=== PATIENT | female | born 1975 | race Caucasian/White ===

== ENCOUNTER 2020-09-26 16:54 | Inpatient (IN) | payer OTHER ==
[2020-09-26] MEDS ORDERED: ASPIRIN 81 MG PO STA (17:26)
[2020-09-26] MEDS ORDERED: SODIUM CHLORIDE 0.9% 1,000 ML IV STA (17:26)
[2020-09-26] MEDS ORDERED: NITROGLYCERIN OINT 1 INCH/GM PACKET TOPICAL STA (17:26)
[2020-09-26] MEDS ORDERED: HEPARIN SODIUM 1,000 UN/ML (10ML VL) IV ONE (17:26)
[2020-09-26] MEDS ORDERED: HEPARIN SOD,PORK IN 0.45% NACL 25,000 UNIT in 0.45% NACL 1 250ML.BAG IV SCH (17:30)
[2020-09-26 18:10] LABS: Appearance,Urine Clear (Clear); Bilirubin,Urine Negative (Negative); Blood,Urine Negative (Negative); Color,Urine Light Yellow; Glucose,Urine (UA) Negative (Negative); Ketones,Urine Negative (Negative); Leukocyte Esterase,Urine Negative (Negative); Nitrite,Urine Negative (Negative); Protein,Urine Negative (Negative); Specific Gravity,Urine 1.005 (1.001-1.035); Urobilinogen,Urine <2.0 mg/dL (<2.0)
[2020-09-26 18:14] LABS: Basophils # (A) 0.1 k/uL (0-0.2); Basophils % (A) 1 %; Eosinophils # (A) 0.1 k/uL (0-0.7); Eosinophils % (A) 1 %; HCT 45.9 % (34.0-46.0); HGB 15.7 gm/dL (11.4-16.0); Lymphocytes # (A) 2.2 k/uL (1.0-4.8); Lymphocytes % (A) 13 %; MCH 31.7 pg (25.0-35.0); MCHC 34.1 g/dL (31.0-37.0); MCV 92.7 fL (80.0-100.0); Mean Platelet Volume 7.5; Monocytes # (A) 0.6 k/uL (0-1.0); Monocytes % (A) 4 %; Neutrophils # (A) 13.6 k/uL (1.3-7.7); Neutrophils % (A) 81 %; Platelet Count 333 k/uL (150-450); RBC 4.95 m/uL (3.80-5.40); RDW 12.8 % (11.5-15.5); WBC 16.8 k/uL (3.8-10.6)
[2020-09-26 18:15] LABS: ALT 21 U/L (4-34); AST 55 U/L (14-36); African American GFR (CKD) >90 (>60 ml/min/1.73 sqM); Albumin 4.2 g/dL (3.5-5.0); Alkaline Phosphatase 94 U/L (38-126); Amylase 48 U/L (30-110); Anion Gap 7 mmol/L; Blood Urea Nitrogen 5 mg/dL (7-17); Calcium 9.2 mg/dL (8.4-10.2); Carbon Dioxide 25 mmol/L (22-30); Chloride 103 mmol/L (98-107); Glucose 109 mg/dL (74-99); Lipase 81 U/L (23-300); Non-African American GFR(CKD) >90 (>60 ml/min/1.73 sqM); Sodium 135 mmol/L (137-145); Total Bilirubin 0.4 mg/dL (0.2-1.3)
[2020-09-26 18:29] LABS: INR 0.9 (<1.2); Partial Thromboplastin Time 22.7 sec (22.0-30.0); Prothrombin Time 9.6 sec (9.0-12.0)
--- NOTE | 2020-09-26 20:04 | ED ---
Chest Pain HPI - General Source: patient, EMS, RN notes reviewed Mode of arrival: EMS Limitations: no limitations <Ghulam Mccall - Last Filed: 09/26/20 20:45> <Yoel Lombardi - Last Filed: 09/27/20 12:46> - General Chief Complaint: Chest Pain Stated Complaint: Chest Pain Time Seen by Provider: 09/26/20 17:20 - History of Present Illness Initial Comments: Patient is a 45-year-old female that presents to emergency department complaining of chest pain. She notes that she was recently started on a new anxiety medication effects or approximately 1 week ago. She notes that the medication help with the chest pain for proximal 5 days, chest pain came back/quit taking the medication. Patient notes that she was seen at [place] had labs done and then was transferred here. Upon transfer patient's labs from [place] showed a troponin of 7.1 a BNP of 279 chest x-ray was negative. Dr. Mishra was made aware patient. Patient states his been having chest pain for approximately 2-3 weeks and that her primary care thought was anxiety. Patient was sitting up in bed in very minimal distress/pain during the exam interview. She denied any other issues or complaints at this time. She was otherwise a well-hydrated 45-year-old female. She denied any shortness of breath headache nausea vomiting diarrhea constipation fever fatigue chills. (Ghulam Mccall) - Related Data Home Medications Medication Instructions Recorded Confirmed Gabapentin 800 mg PO TID 09/26/20 09/26/20 Omeprazole [PriLOSEC] 40 mg PO DAILY 09/26/20 09/26/20 Venlafaxine HCl [Effexor XR] 37.5 mg PO DAILY 09/26/20 09/26/20 lisinopriL 10 mg PO DAILY 09/26/20 09/26/20 Allergies Allergy/AdvReac Type Severity Reaction Status Date / Time No Known Allergies Allergy Verified 09/26/20 20:21 Review of Systems ROS Other: All systems not noted in ROS Statement are negative. <Ghulam Mccall - Last Filed: 09/26/20 20:45> ROS Other: All systems not noted in ROS Statement are negative. <Yoel Lombardi - Last Filed: 09/27/20 12:46> ROS Statement: Those systems with pertinent positive or pertinent negative responses have been documented in the HPI. EKG Findings - EKG Comments: EKG Findings:: Ventricular rate 100 bpm, AK interval 138 ms, QRS duration 68 ms, QTC 456 ms, PRT axes 40/-17/87. Normal sinus rhythm, low voltage QRS, possible inferior infarct age undetermined, cannot rule out anteroseptal infarct, age undetermined, abnormal ECG. <Ghulam Mccall - Last Filed: 09/26/20 20:45> Past Medical History Additional Past Medical History / Comment(s): back pain History of Any Multi-Drug Resistant Organisms: None Reported Past Surgical History: Back Surgery Past Psychological History: Anxiety, Depression Smoking Status: Current every day smoker Past Alcohol Use History: None Reported Past Drug Use History: None Reported <Ghulam Mccall - Last Filed: 09/26/20 20:45> General Exam Limitations: no limitations General appearance: alert, in no apparent distress Head exam: Present: atraumatic, normocephalic, normal inspection Eye exam: Present: normal appearance, PERRL, EOMI. Absent: scleral icterus, conjunctival injection, periorbital swelling Neck exam: Present: normal inspection Respiratory exam: Present: normal lung sounds bilaterally. Absent: respiratory distress, wheezes, rales, rhonchi, stridor Cardiovascular Exam: Present: regular rate, normal rhythm, normal heart sounds. Absent: systolic murmur, diastolic murmur, rubs, gallop, clicks GI/Abdominal exam: Present: soft, normal bowel sounds. Absent: distended, tenderness, guarding, rebound, rigid Extremities exam: Present: normal inspection, full ROM, normal capillary refill. Absent: tenderness, pedal edema, joint swelling, calf tenderness Neurological exam: Present: alert, oriented X3 Psychiatric exam: Present: normal affect, normal mood Skin exam: Present: warm, dry, intact, normal color. Absent: rash <Ghulam Mccall - Last Filed: 09/26/20 20:45> Course Vital Signs 09/26/20 09/26/20 09/26/20 16:59 17:00 17:04 Temperature 98.6 F Pulse Rate 75 103 H Pulse Rate [ Pulse Oximetery ] Respiratory 20 Rate Blood Pressure 114/87 114/87 Blood Pressure [Right Arm] O2 Sat by Pulse 97 98 97 Oximetry 09/26/20 09/26/20 09/26/20 17:30 18:00 19:45 Temperature Pulse Rate 68 72 84 Pulse Rate [ Pulse Oximetery ] Respiratory 18 Rate Blood Pressure 121/89 115/86 139/64 Blood Pressure [Right Arm] O2 Sat by Pulse 99 97 97 Oximetry 09/26/20 20:52 Temperature 98 F Pulse Rate Pulse Rate [ 100 Pulse Oximetery ] Respiratory 18 Rate Blood Pressure Blood Pressure 132/67 [Right Arm] O2 Sat by Pulse 100 Oximetry Chest Pain MDM - PERC Rule Heart Rate < 100: (0) No g: (0) No No Prior History pf DVT/PE: (0) No No Recent Trauma or Surgery: (0) No Hemoptysis: (0) No No Clinical Signs Suggesting DVT: (0) No - ZACK Score Age > 65: (0) No Elevated Cardiac Markers: (1) Yes <Ghulam Mccall - Last Filed: 09/26/20 20:45> - MDM 45-year-old female transferred from [place] due to chest pain elevated troponin of 7.1. Repeat labs, EKG, library monitor ordered. Patient was heparinized, given aspirin, given Nitropaste. Labs: White blood cells 16.8 troponin 7.890, rest of labs negative. Case discussed with Dr. Lombardi, patient to hospital. Dr. randall was consulted and will accept the admit. On-call rail technician Dr. Gómez was consulted and made aware patient. (Ghulam Mccall) Disposition Time of Disposition: 20:46 <Ghulam Mccall - Last Filed: 09/26/20 20:45> <Yoel Lombardi - Last Filed: 09/27/20 12:46> Clinical Impression: Chest pain, Elevated troponin I level, Acute non-ST elevation myocardial infarction (NSTEMI) Disposition: ADMITTED IP TO THIS HOSP Condition: Stable
[2020-09-26] MEDS ORDERED: NITROGLYCERIN SL TABS 0.4 MG TAB SUBLINGUAL PRN (20:43)
[2020-09-26] MEDS ORDERED: ATORVASTATIN 40 MG TAB PO STA (21:11)
[2020-09-26] MEDS ORDERED: METOPROLOL TARTRATE 25 MG TAB PO STA (21:12)
--- NOTE | 2020-09-26 22:37 | CONS ---
CONSULTATION CHIEF COMPLAINT: Chest pain. HISTORY OF PRESENT ILLNESS: Allison is a 45-year-old lady with history of hypertension who presented to her primary care physician with episodes of precordial chest pain. They initially thought it was related to anxiety and had apparently given her medications for anxiety and due to further episodes of chest discomfort she presented to the emergency room in [place] where her troponin was elevated at 7 and they called me and I asked them to transfer the patient over to [facility]. I am seeing the patient in the emergency room. She appears comfortable at rest. Chest pain-free. Last time she had chest pain was sometime this morning. Her EKG shows evidence of anteroseptal myocardial infarction with Q-waves from V1 to V3. Based on her history she probably had her UT on Wednesday when she states she had worst pain Her potassium is slightly low at 3.3. The patient is on IV heparin and nitro paste. She is hemodynamically stable. Oxygenating well and is free of symptoms. She is not in CHF clinically. She is not in cardiogenic shock. She is chest pain free. I reviewed her symptomatology, EKG findings, cardiac enzymes and advised her to undergo cardiac catheterization tomorrow. If her condition changes tonight, we will consider performing invasive angiography sooner. She is going to be treated with optimal medical therapy including aspirin, Plavix, Lipitor, Toprol, nitro paste and IV heparin. PAST MEDICAL HISTORY: Significant for hypertension. MEDICATIONS: Medications are as charted. ALLERGIES: None. FAMILY HISTORY: Significant for premature coronary artery disease. SOCIAL HISTORY: Significant for smoking. There is no history of EtOH abuse or drug abuse. REVIEW OF SYSTEMS: HEENT is unremarkable. CARDIAC as described above. RESPIRATORY as described above. GI negative. : Negative. ALLERGY/IMMUNOLOGY: Negative. SKIN negative. MUSCULOSKELETAL negative. ENDOCRINE negative. DERM negative. CONSTITUTIONAL negative. ONCOLOGICAL negative. INFECTION PREVENTION PRACTITIONER negative. Rest of the system review is not relevant. EXAM: Comfortable at rest. Vital signs are stable. There is no jugular venous distention. Carotid upstroke is normal. There is no bruit. CHEST exam reveals good air entry bilaterally. HEART exam reveals first and second heart sounds. No gallop. No murmur. No rub. ABDOMEN is soft, nontender. Examination of EXTREMITIES did not reveal any edema. Peripheral pulses are felt. INFECTION PREVENTION PRACTITIONER EXAM did not reveal focal neurological deficits. I reviewed the labs, EKG. ASSESSMENT: Recent anteroseptal myocardial infarction. PLAN: Patient will be treated with optimal medical therapy including aspirin, Plavix, nitrates, beta blockers, statins and IV heparin. Obtain a 2D echo in the morning to document LV function and perform cardiac catheterization on her tomorrow. Thank you for letting us to participate in the care of this pleasant lady. ERIC / JASS: [id number] / MTDGogo
[2020-09-27] MEDS ORDERED: HEPARIN SODIUM 1,000 UN/ML (10ML VL) IVP ONE (00:46)
[2020-09-27] MEDS ORDERED: ACETAMINOPHEN TAB 500 MG TAB PO STA (04:30)
[2020-09-27] MEDS ORDERED: NITROGLYCERIN SL TABS 0.4 MG TAB SUBLINGUAL PRN ×2 (07:35→13:15)
[2020-09-27] MEDS ORDERED: ALPRAZolam 0.5 MG TAB PO PRN (07:35)
[2020-09-27] MEDS ORDERED: SODIUM CHLORIDE 0.9% 1,000 ML in EMPTY BAG 1 BAG IV ONE (07:35)
[2020-09-27] MEDS: ASPIRIN 325 MG TAB PO SCH (07:58)
[2020-09-27] MEDS: ALPRAZolam 0.25 MG TAB PO PRN (07:58)
[2020-09-27] MEDS: lisinopriL 5 MG TAB PO SCH (07:58)
[2020-09-27] MEDS: CLOPIDOGREL 75 MG TAB PO SCH (07:58)
[2020-09-27] MEDS: METOPROLOL TARTRATE 50 MG TAB PO SCH (07:58)
[2020-09-27 08:00] LABS: Basophils # (A) 0.1 k/uL (0-0.2); Basophils % (A) 1 %; Eosinophils # (A) 0.1 k/uL (0-0.7); Eosinophils % (A) 1 %; HCT 40.5 % (34.0-46.0); HGB 13.7 gm/dL (11.4-16.0); Lymphocytes # (A) 1.6 k/uL (1.0-4.8); Lymphocytes % (A) 16 %; MCH 31.6 pg (25.0-35.0); MCHC 33.9 g/dL (31.0-37.0); MCV 93.3 fL (80.0-100.0); Monocytes # (A) 0.5 k/uL (0-1.0); Monocytes % (A) 5 %; Neutrophils # (A) 7.7 k/uL (1.3-7.7); Neutrophils % (A) 77 %; Platelet Count 246 k/uL (150-450); RBC 4.34 m/uL (3.80-5.40); RDW 12.7 % (11.5-15.5)
[2020-09-27 08:20] LABS: ALT 17 U/L (4-34); AST 38 U/L (14-36); African American GFR (CKD) >90 (>60 ml/min/1.73 sqM); Albumin 3.6 g/dL (3.5-5.0); Alkaline Phosphatase 79 U/L (38-126); Anion Gap 4 mmol/L; Blood Urea Nitrogen 5 mg/dL (7-17); Calcium 8.5 mg/dL (8.4-10.2); Carbon Dioxide 25 mmol/L (22-30); Chloride 106 mmol/L (98-107); Glucose 114 mg/dL (74-99); Non-African American GFR(CKD) >90 (>60 ml/min/1.73 sqM); Potassium 3.9 mmol/L (3.5-5.1); Sodium 135 mmol/L (137-145); Total Bilirubin 0.5 mg/dL (0.2-1.3); Total Protein 6.1 g/dL (6.3-8.2)
[2020-09-27] MEDS ORDERED: ATORVASTATIN 40 MG TAB PO SCH (09:00)
--- NOTE | 2020-09-27 11:14 | P.HPIM ---
History of Present Illness Patient is a pleasant 45-year-old female came in because of on and off chest pain was going on for about 2-3 weeks on the left side of the chest pressure- like sensation moderate severity last for a few minutes nonradiating associated diaphoresis, no shortness of breath, no associated lightheadedness. Patient the chest pain is nonpleuritic not associated with food nonexertional. Patient had an EKG which showed T-wave inversions in aVL and Q waves in V1 and with to V3. Patient is found to have elevated troponin of 7 at to [place] ER subsequently I was called and I recommended transfer to ER patient was transferred to [facility] ER patient received IV heparin patient had leukocytosis which presently is improving. Patient the last troponin was 7.75. Patient was evaluated by cardiology and patient is going for cardiac catheterization. Patient is presently on aspirin Plavix Lipitor Toprol as well as lisinopril. Patient has smoking history smokes about one pack of cigarette per day. He does have significant family history on mother's side of coronary artery disease. Chest x-ray did not show any significant abnormality. REVIEW OF SYSTEMS: CONSTITUTIONAL: No fever, no malaise, no fatigue. HEENT: No recent visual problems or hearing problems. Denied any sore throat. CARDIOVASCULAR: No chest pain, orthopnea, PND, no palpitations, no syncope. PULMONARY: No shortness of breath, no cough, no hemoptysis. GASTROINTESTINAL: No diarrhea, no nausea, no vomiting, no abdominal pain. NEUROLOGICAL: No headaches, no weakness, no numbness. HEMATOLOGICAL: Denies any bleeding or petechiae. GENITOURINARY: Denies any burning micturition, frequency, or urgency. MUSCULOSKELETAL/RHEUMATOLOGICAL: Denies any joint pain, swelling, or any muscle pain. ENDOCRINE: Denies any polyuria or polydipsia. The rest of the 14-point review of systems is negative. PHYSICAL EXAMINATION: GENERAL: The patient is alert and oriented x3, not in any acute distress. Well developed, well nourished. HEENT: Pupils are round and equally reacting to light. EOMI. No scleral icterus. No conjunctival pallor. Normocephalic, atraumatic. No pharyngeal erythema. No thyromegaly. CARDIOVASCULAR: S1 and S2 present. No murmurs, rubs, or gallops. PULMONARY: Chest is clear to auscultation, no wheezing or crackles. ABDOMEN: Soft, nontender, nondistended, normoactive bowel sounds. No palpable organomegaly. MUSCULOSKELETAL: No joint swelling or deformity. EXTREMITIES: No cyanosis, clubbing, or pedal edema. NEUROLOGICAL: Gross neurological examination did not reveal any focal deficits. SKIN: No rashes. Assessment and plan -Acute/ recent non-ST elevation myocardial infarction: Patient will undergo cardiac catheterization today patient is presently on IV heparin, along with the antiplatelet therapy nitro paste, beta fermin and statin -Hypertension: Patient is was limp 5 mg of lisinopril blood pressure is well controlled -Gastric esophageal reflux disease -Depression Heparin nicotine use: Counseling was provided DVT prophylaxis: Patient is on IV heparin Past Medical History Past Medical History: GERD/Reflux, Hypertension, Skin Disorder Additional Past Medical History / Comment(s): back pain, basal cell carcinoma History of Any Multi-Drug Resistant Organisms: None Reported Past Surgical History: Back Surgery Additional Past Surgical History / Comment(s): spinal stimulator placed november 2018, left SI sx Past Anesthesia/Blood Transfusion Reactions: No Reported Reaction Past Psychological History: Anxiety, Depression Smoking Status: Current every day smoker Past Alcohol Use History: None Reported Past Drug Use History: None Reported - Past Family History Mother Family Medical History: Congestive Heart Failure (CHF) Medications and Allergies Home Medications Medication Instructions Recorded Confirmed Type Gabapentin 800 mg PO TID 09/26/20 09/26/20 History Omeprazole [PriLOSEC] 40 mg PO DAILY 09/26/20 09/26/20 History Venlafaxine HCl [Effexor XR] 37.5 mg PO DAILY 09/26/20 09/26/20 History lisinopriL 10 mg PO DAILY 09/26/20 09/26/20 History Allergies Allergy/AdvReac Type Severity Reaction Status Date / Time No Known Allergies Allergy Verified 09/26/20 20:21 Physical Exam Vitals: Vital Signs Temp Pulse Pulse Resp BP BP Pulse Ox 09/27/20 07:30 98.3 F 80 16 110/77 97 09/27/20 04:00 98.7 F 88 16 128/65 99 09/27/20 01:36 85 18 09/26/20 23:55 86 18 09/26/20 23:28 98.5 F 86 18 130/76 99 09/26/20 20:52 98 F 100 18 132/67 100 09/26/20 19:45 84 18 139/64 97 09/26/20 18:00 72 115/86 97 09/26/20 17:30 68 121/89 99 09/26/20 17:04 98.6 F 103 H 20 114/87 97 09/26/20 17:00 75 114/87 98 09/26/20 16:59 97 Intake and Output 09/26/20 09/27/20 09/27/20 22:59 06:59 14:59 Intake Total 69.167 117.6 Balance 69.167 117.6 Intake: IV 10 Invasive Line 1 10 Intake, IV Titration 69.167 97.6 Amount Heparin Sod,Pork in 0.45% 69.167 97.6 NaCl 25,000 unit In 0.45 % NaCl 1 250ml.bag @ 11. 482 UNITS/KG/HR 10 mls/hr IV .Q24H [facility] Rx#: [id number] Oral 10 Other: Voiding Method Toilet # Voids 1 1 Weight 87.09 kg 84.8 kg Results CBC & Chem 7: 09/27/20 07:45 09/27/20 07:45 Labs: Abnormal Lab Results - Last 24 Hours (Table) 09/26/20 09/26/20 09/26/20 Range/Units 17:58 17:58 17:58 WBC 16.8 H (3.8-10.6) k/uL Neutrophils # 13.6 H (1.3-7.7) k/uL APTT (22.0-30.0) sec Sodium 135 L (137-145) mmol/L BUN 5 L (7-17) mg/dL Creatinine (0.52-1.04) mg/dL Glucose 109 H (74-99) mg/dL AST 55 H (14-36) U/L Troponin I 7.890 H* (0.000-0.034) ng/mL Total Protein (6.3-8.2) g/dL 09/26/20 09/27/20 09/27/20 Range/Units 21:50 00:00 00:00 WBC (3.8-10.6) k/uL Neutrophils # (1.3-7.7) k/uL APTT 38.0 H (22.0-30.0) sec Sodium (137-145) mmol/L BUN (7-17) mg/dL Creatinine (0.52-1.04) mg/dL Glucose (74-99) mg/dL AST (14-36) U/L Troponin I 8.140 H* 7.750 H* (0.000-0.034) ng/mL Total Protein (6.3-8.2) g/dL 09/27/20 09/27/20 Range/Units 07:45 07:45 WBC (3.8-10.6) k/uL Neutrophils # (1.3-7.7) k/uL APTT 31.6 H (22.0-30.0) sec Sodium 135 L (137-145) mmol/L BUN 5 L (7-17) mg/dL Creatinine 0.50 L (0.52-1.04) mg/dL Glucose 114 H (74-99) mg/dL AST 38 H (14-36) U/L Troponin I (0.000-0.034) ng/mL Total Protein 6.1 L (6.3-8.2) g/dL Thrombosis Risk Factor Assmnt - Choose All That Apply Each Factor Represents 1 point: Age 41-60 years, Obesity (BMI >25) Other Risk Factors: No Other congenital or acquired thrombophilia - If yes, enter type in comment: No Thrombosis Risk Factor Assessment Total Risk Factor Score: 2 Thrombosis Risk Factor Assessment Level: Low Risk
[2020-09-27] MEDS ORDERED: LIDOCAINE 1% INJ 10MG/ML (20 ML MDV) SQ ONE ×2 (11:46→12:15)
[2020-09-27] MEDS ORDERED: fentaNYL (PF) 50 MCG/ML 2 ML AMP IVP ONE (11:48)
[2020-09-27] MEDS ORDERED: IV FLUID CONTINUATION 1,000 ML IV ONE (11:48)
[2020-09-27] MEDS ORDERED: MIDAZOLAM 2 MG/2 ML VIAL IVP ONE (11:50)
[2020-09-27 11:51] LABS: Chol/HDL Ratio 7.71; Cholesterol 185 mg/dL (0-200); LDL Cholesterol,Calculated 121.4 mg/dL (0.0-131.0)
[2020-09-27] MEDS ORDERED: HEPARIN SODIUM 1,000 UN/ML (10ML VL) IV ONE (12:14)
[2020-09-27] MEDS ORDERED: NITROGLYCERIN 1000MCG/10ML SYRINGE INTRACORON ONE (12:39)
[2020-09-27] MEDS ORDERED: IOPAMIDOL-370 125ML BTL INJ ONE ×2 (12:42→13:17)
[2020-09-27] MEDS ORDERED: niCARdipine Syringe (1,000 mcg/10 mL) INTRACORON ONE (12:51)
[2020-09-27] MEDS ORDERED: CLOPIDOGREL 75 MG TAB PO ONE (13:06)
[2020-09-27] MEDS ORDERED: RX INFO: IV CONTRAST WAS GIVEN 1 EACH MISC MISCELLANE PRN (13:15)
[2020-09-27] MEDS ORDERED: ATROPINE SULFATE 0.1 MG/ML 10ML SYRINGE IV PRN (13:15)
[2020-09-27] MEDS ORDERED: ZOLPIDEM 5 MG TAB PO PRN (13:15)
[2020-09-27] MEDS ORDERED: SODIUM CHLORIDE 0.9% 1,000 ML IV SCH (13:15)
[2020-09-27] MEDS ORDERED: MAG HYDROX/AL HYDROX/SIMETH 30 ML CUP PO PRN (13:15)
[2020-09-27 13:36] LABS: Glucose,Whole Blood 102 mg/dL (75-99)
[2020-09-27] MEDS: GABAPENTIN 400 MG CAP PO SCH ×3 (13:44→21:31)
[2020-09-27] MEDS: VENLAFAXINE HCL ER 37.5 MG CAP PO SCH (13:56)
--- NOTE | 2020-09-27 14:01 | ECHOF ---
Referral Reason:lv function MEASUREMENTS -------- HEIGHT: 160.0 cm WEIGHT: 84.4 kg BP: RVIDd: 1.5 cm (< 3.3) IVSd: 1.0 cm (0.6 - 1.1) LVIDd: 5.6 cm (3.9 - 5.3) LVPWd: 1.0 cm (0.6 - 1.1) IVSs: 1.2 cm LVIDs: 4.5 cm LVPWs: 1.3 cm LAESV Index (A-L): 19.92 ml/m Ao Diam: 3.1 cm (2.0 - 3.7) AV Cusp: 1.8 cm (1.5 - 2.6) LA Diam: 2.9 cm (2.7 - 3.8) MV EXCURSION: 22.451 mm (> 18.000) MV EF SLOPE: 154 mm/s (70 - 150) EPSS: 0.7 cm MV E Clay: 0.96 m/s MV DecT: 196 ms MV A Clay: 0.80 m/s MV E/A Ratio: 1.20 RAP: 15.00 mmHg RVSP: 20.99 mmHg FINDINGS -------- This was a technically good study. The left ventricular size is normal. Left ventricular wall thickness is normal. Overall left vent ricular systolic function is moderately impaired with, an EF between 35 - 40 %. Apical anterior LV wall motion is hypokinetic. Apical lateral LV wall motion is hypokinetic. Apical inferior LV wa ll motion is hypokinetic. Apical septum LV wall motion is hypokinetic. Septal Hypokinesis The right ventricle is normal in size. The left atrial size is normal. Normal LA size by volume 22+/-6 ml/m2. The right atrial size is normal. The aortic valve is trileaflet and appears structurally normal. The mitral valve is normal. There is trace mitral regurgitation. The tricuspid valve appears structurally normal. Trace tricuspid regurgitation present. Right maria luisa tricular systolic pressure is normal at < 35 mmHg. There is no pulmonic regurgitation present. The aortic root size is normal. The inferior vena cava is mildly dilated. There is no pericardial effusion. CONCLUSIONS -------- 1. The left ventricular size is normal. 2. Left ventricular wall thickness is normal. 3. Overall left ventricular systolic function is moderately impaired with, an EF between 35 - 40 %. 4. Apical anterior LV wall motion is hypokinetic. 5. Apical lateral LV wall motion is hypokinetic. 6. Apical inferior LV wall motion is hypokinetic. 7. Apical septum LV wall motion is hypokinetic. 8. Septal Hypokinesis 9. There is trace mitral regurgitation. 10. Trace tricuspid regurgitation present. 11. The inferior vena cava is mildly dilated. 12. There is no pericardial effusion. NURSE ORTHO: Sayda Forrest RDCS
[2020-09-27 14:05] VITALS: BMI 33.1
--- NOTE | 2020-09-27 19:29 | CC ---
CARDIAC CATHETERIZATION REPORT INDICATION: This is a 45-year-old lady who is admitted to the hospital with recent anterior wall myocardial infarction. The patient initially presented to her primary care physician with symptoms of chest pain, was supposed to be evaluated, was supposed to see Cardiology in the outpatient setting, presented to [facility] with persistent chest pain and had elevated troponin due to which she was transferred over to [facility]. She probably had her myocardial infarction around Wednesday and by the time we evaluated her in the emergency room at [facility], she was pain free, hemodynamically stable and had EKG evidence of anterior wall myocardial infarction with Q-waves from V1 to V3. We treated her with aspirin, beta blockers, nitrates, Plavix, intravenous heparin and the plan was to perform cardiac catheterization today. She remained hemodynamically stable and free of symptoms overnight. At the time of the cardiac catheterization, she is somewhat hypotensive with systolic blood pressures in the 90s, but does not have any symptoms. PROCEDURE NOTE: After obtaining informed consent, left heart catheterization and coronary angiogram were performed via the right femoral artery using standard Delmer catheters. The patient tolerated the procedure well without any obvious immediate complications. FINDINGS: HEMODYNAMICS: Left ventricular end-diastolic pressure is 21 mm. There is no significant gradient across the aortic valve. LEFT VENTRICULOGRAM: Left ventriculogram is not performed. ANGIOGRAPHIC DATA: LEFT MAIN CORONARY ARTERY: Left main coronary artery is a normal-sized vessel and is free of stenosis. Divides into left anterior descending coronary artery and circumflex coronary artery. LEFT ANTERIOR DESCENDING CORONARY ARTERY: LAD appears totally occluded at the origin of the diagonal branch. There are [id number] and [id number] collaterals to the distal LAD which is fluid filling slowly. CIRCUMFLEX CORONARY ARTERY: Circumflex coronary artery shows a 70% to 80% stenosis distally. RIGHT CORONARY ARTERY: Right coronary artery shows mild nonobstructive disease and there are collaterals to the distal LAD. CONCLUSIONS: Totally occluded left anterior descending coronary artery with significant stenosis involving circumflex coronary artery. PLAN: Patient will undergo angioplasty with stent placement in the LAD and will be brought back hopefully on Wednesday to perform angioplasty of the circumflex coronary artery. The patient unfortunately already completed her myocardial infarction by the time she came to the ER and her troponins have remained around 7-8. MMODL / IJN: [id number] /
[2020-09-28 05:26] LABS: Basophils % (A) 0 %; Eosinophils # (A) 0.1 k/uL (0-0.7); Eosinophils % (A) 1 %; HCT 36.1 % (34.0-46.0); HGB 12.4 gm/dL (11.4-16.0); Lymphocytes # (A) 1.8 k/uL (1.0-4.8); Lymphocytes % (A) 19 %; MCH 32.4 pg (25.0-35.0); MCHC 34.4 g/dL (31.0-37.0); MCV 94.1 fL (80.0-100.0); Mean Platelet Volume 7.8; Monocytes # (A) 0.5 k/uL (0-1.0); Monocytes % (A) 5 %; Neutrophils # (A) 7.1 k/uL (1.3-7.7); Neutrophils % (A) 74 %; Platelet Count 246 k/uL (150-450); RBC 3.84 m/uL (3.80-5.40); RDW 13.1 % (11.5-15.5); WBC 9.6 k/uL (3.8-10.6)
[2020-09-28 05:43] LABS: ALT 14 U/L (4-34); AST 34 U/L (14-36); African American GFR (CKD) >90 (>60 ml/min/1.73 sqM); Albumin 3.1 g/dL (3.5-5.0); Alkaline Phosphatase 59 U/L (38-126); Anion Gap 3 mmol/L; Blood Urea Nitrogen 6 mg/dL (7-17); Calcium 8.5 mg/dL (8.4-10.2); Carbon Dioxide 25 mmol/L (22-30); Chloride 107 mmol/L (98-107); Glucose 105 mg/dL (74-99); Non-African American GFR(CKD) >90 (>60 ml/min/1.73 sqM); Potassium 3.7 mmol/L (3.5-5.1); Sodium 135 mmol/L (137-145); Total Bilirubin 0.4 mg/dL (0.2-1.3); Total Protein 5.5 g/dL (6.3-8.2)
[2020-09-28] MEDS ORDERED: POTASSIUM CHLORIDE ER 20 MEQ TAB.ER PO STA (05:59)
[2020-09-28] MEDS ORDERED: PANTOPRAZOLE 40 MG TABLET PO SCH (07:30)
[2020-09-28] MEDS: CLOPIDOGREL 75 MG TAB PO SCH (08:20)
[2020-09-28] MEDS: METOPROLOL TARTRATE 50 MG TAB PO SCH (08:20)
[2020-09-28] MEDS: GABAPENTIN 400 MG CAP PO SCH (08:20)
[2020-09-28] MEDS: lisinopriL 5 MG TAB PO SCH (08:21)
[2020-09-28] MEDS: ASPIRIN 325 MG TAB PO SCH (08:21)
[2020-09-28] MEDS: VENLAFAXINE HCL ER 37.5 MG CAP PO SCH (08:22)
[2020-09-28] MEDS: ALPRAZolam 0.25 MG TAB PO PRN (08:29)
[2020-09-28 08:46] VITALS: TEMP 98.3
--- NOTE | 2020-09-28 08:47 | P.PN ---
Subjective HISTORY OF PRESENTING ILLNESS This is a pleasant 45-year-old female who has been having off and on chest pain over the last 2-3 weeks and was found to have recent anterior septal MO with non-STEMI with troponins up to 8. She has not had any recurrence of chest pain. She underwent diagnostic heart catheterization yesterday which showed obstructi ve disease in the LAD and circumflex and echocardiogram showed ejection fraction 35-40%. She then underwent PCI to both the LAD and circumflex with Impella support from the right femoral approach. She has been doing well since that time. No hematoma of the right femoral site. She states she feels well. She denies any shortness breath, chest pain or orthopnea. Vital signs of been stable with systolics mainly in the 100s to 120s. He has been placed on lisinopril, metoprolol, aspirin and Plavix. PHYSICAL EXAMINATION Vital signs reviewed. CONSTITUTIONAL: No apparent distress. HEENT: Head is normocephalic. Pupils are equal, round. Sclerae anicteric. Mucous membranes of the mouth are moist. No JVD. No carotid bruit. CHEST EXAMINATION: Lungs are clear to auscultation. No chest wall tenderness is noted on palpation or with deep breathing. HEART EXAMINATION: Regular rate and rhythm. S1, S2 heard. No murmurs, gallops or rub. ABDOMEN: Soft, nontender. Positive bowel sounds. EXTREMITIES: 2+ peripheral pulses, no lower extremity edema and no calf tenderness. NEUROLOGIC EXAMINATION: Patient is awake, alert and oriented x3. ASSESSMENT 1. Non-STEMI 2. Coronary artery disease status post PCI of LAD and circumflex 3. Ischemic cardiomyopathy ejection fraction 35-40% 4. Tobacco abuse 5. Hypertension 6. Hyperlipidemia PLAN Patient underwent PCI of LAD and circumflex. RCA was patent without significant disease. Patient has done well over the last 24 hours. Continue with heart failure regimen, dual antiplatelets. Discussed tobacco cessation. Patient appears stable for discharge home if she is doing well on the afternoon. Follow-up with Dr. Gómez in 1 week. Objective - Vital Signs Vital signs: Vital Signs Temp 98.6 F 09/28/20 04:00 Pulse 96 09/28/20 05:16 Resp 22 09/28/20 06:00 BP 116/75 09/28/20 06:00 Pulse Ox 95 09/28/20 06:00 Intake & Output 09/27/20 09/28/20 09/28/20 18:59 06:59 18:59 Intake Total 1812.6 600 Output Total 300 800 0 Balance 1512.6 -200 0 Weight 84.8 kg 87.4 kg Intake: IV 1705 600 Invasive Line 1 10 Sodium Chloride 0.9% 1, 75 600 000 ml @ 75 mls/hr IV . [id number] [facility] Rx#:[id number] Sodium Chloride 0.9% 1, 1020 000 ml In Empty Bag 1 bag @ 1 ML/KG/HR 84.8 mls/hr IV .[id number] Rx#: [id number] Intake, IV Titration 97.6 Amount Heparin Sod,Pork in 0.45% 97.6 NaCl 25,000 unit In 0.45 % NaCl 1 250ml.bag @ 11. 482 UNITS/KG/HR 10 mls/hr IV .Q24H [facility] Rx#: [id number] Oral 10 Output: Urine 300 800 0 Other: Voiding Method Bedpan Bedside Commode # Voids 1 1 1 # Bowel Movements 1 - Labs CBC & Chem 7: 09/28/20 05:16 09/28/20 05:16 Labs: Abnormal Lab Results - Last 24 Hours (Table) 09/27/20 09/27/20 09/28/20 Range/Units 07:45 13:34 05:16 Sodium 135 L (137-145) mmol/L BUN 6 L (7-17) mg/dL Creatinine 0.49 L (0.52-1.04) mg/dL Glucose 105 H (74-99) mg/dL POC Glucose (mg/dL) 102 H (75-99) mg/dL Total Protein 5.5 L (6.3-8.2) g/dL Albumin 3.1 L (3.5-5.0) g/dL Triglycerides 198.0 H (0.0-149.0) mg/dL HDL Cholesterol 24.0 L (40.0-60.0) mg/dL
[2020-09-28] MEDS ORDERED: ATORVASTATIN 80 MG TAB PO SCH (09:00)
[2020-09-28] MEDS ORDERED: lisinopriL 10 MG TAB PO SCH (09:00)
--- NOTE | 2020-09-28 12:18 | P.DS ---
Providers Date of admission: 09/26/20 20:31 Attending physician: Ranjeet Pino MD Consults: 09/26/20 20:43 Consult Physician Urgent Consulting Provider: Enmanuel Gómez Consult Reason/Comments: elevated troponin Do you want consulting provider notified?: Already Contacted 09/27/20 13:15 Consult Physician Routine Consulting Provider: [facility] Consult Reason/Comments: Post Interventional patient Do you want consulting provider notified?: Already Contacted Primary care physician: [facility] Hospital Course: Patient is a pleasant 45-year-old female came in because of on and off chest pain was going on for about 2-3 weeks on the left side of the chest pressure- like sensation moderate severity last for a few minutes nonradiating associated diaphoresis, no shortness of breath, no associated lightheadedness. Patient the chest pain is nonpleuritic not associated with food nonexertional. Patient had an EKG which showed T-wave inversions in aVL and Q waves in V1 and with to V3. Patient is found to have elevated troponin of 7 at to [place] [facility] subsequently I was called and I recommended transfer to ER patient was transferred to [facility] ER patient received IV heparin patient had leukocytosis which presently is improving. Patient the last troponin was 7.75. Patient was evaluated by cardiology and patient is going for cardiac catheterization. Patient is presently on aspirin Plavix Lipitor Toprol as well as lisinopril. Patient has smoking history smokes about one pack of cigarette per day. He does have significant family history on mother's side of coronary artery disease. Chest x-ray did not show any significant abnormality. 09/28/2020 Patient had characterization yesterday and patient received stents to LAD and circumflex. Patient had a decreased EF of around 35-40%. Patient is not in heart failure exacerbation. Patient will be discharged today patient was cleared by cardiology. PHYSICAL EXAMINATION: GENERAL: The patient is alert and oriented x3, not in any acute distress. Well developed, well nourished. HEENT: Pupils are round and equally reacting to light. EOMI. No scleral icterus. No conjunctival pallor. Normocephalic, atraumatic. No pharyngeal erythema. No thyromegaly. CARDIOVASCULAR: S1 and S2 present. No murmurs, rubs, or gallops. PULMONARY: Chest is clear to auscultation, no wheezing or crackles. ABDOMEN: Soft, nontender, nondistended, normoactive bowel sounds. No palpable organomegaly. MUSCULOSKELETAL: No joint swelling or deformity. EXTREMITIES: No cyanosis, clubbing, or pedal edema. NEUROLOGICAL: Gross neurological examination did not reveal any focal deficits. SKIN: No rashes. Assessment and plan -Acute/ recent non-ST elevation myocardial infarction: Patient had a cardiac catheterization and stents to LAD and circumflex, patient will be discharged on dual antiplatelet therapy, statin, beta fermin. -Acute systolic dysfunction without pulmonary edema acute exacerbation of CHF, secondary to acute myocardial infarction, patient is not requiring any diuretics at this time patient discharged on 5 mg of lisinopril -Hypertension: -Gastric esophageal reflux disease -Depression - nicotine use: Counseling was provided Patient Condition at Discharge: Stable Plan - Discharge Summary Discharge Rx Participant: Yes New Discharge Prescriptions: New Aspirin 325 mg PO DAILY #30 tab Atorvastatin [Lipitor] 80 mg PO DAILY #30 tab lisinopriL [Zestril] 5 mg PO DAILY #30 tab Clopidogrel [Plavix] 75 mg PO DAILY #30 tab Metoprolol Succinate [Toprol XL] 50 mg PO DAILY #30 tab Continue Omeprazole [PriLOSEC] 40 mg PO DAILY Gabapentin 800 mg PO TID Venlafaxine HCl [Effexor XR] 37.5 mg PO DAILY Discontinued lisinopriL 10 mg PO DAILY Discharge Medication List Gabapentin 800 mg PO TID 09/26/20 [History] Omeprazole [PriLOSEC] 40 mg PO DAILY 09/26/20 [History] Venlafaxine HCl [Effexor XR] 37.5 mg PO DAILY 09/26/20 [History] Aspirin 325 mg PO DAILY #30 tab 09/28/20 [Rx] Atorvastatin [Lipitor] 80 mg PO DAILY #30 tab 09/28/20 [Rx] Clopidogrel [Plavix] 75 mg PO DAILY #30 tab 09/28/20 [Rx] Metoprolol Succinate [Toprol XL] 50 mg PO DAILY #30 tab 09/28/20 [Rx] lisinopriL [Zestril] 5 mg PO DAILY #30 tab 09/28/20 [Rx] Follow up Appointment(s)/Referral(s): Rae Maier NPC [Primary Care Provider] - 3 Days Enmanuel Gómez MD [STAFF PHYSICIAN] - 1 Week Discharge Disposition: HOME SELF-CARE
[2020-09-28 13:24] VITALS: BP 106/69
[2020-09-28 14:43] VITALS: PULSE 81; RESP 15
--- NOTE | 2020-09-28 22:57 | PTCA ---
PERCUTANEOUSTRANS CORORONARY ANGIOGRAPHY DATE OF SERVICE: September 28, 2020. PERFORMING PHYSICIAN: Martell Pardo MD. PROCEDURE PERFORMED: 1. Successful placement of Impella in the left ventricle via right groin approach. 2. Successful stenting of the proximal to mid left anterior descending artery using a 3.0 x 38 mm Xience drug-eluting stent which was post-dilated using 3.25 mm NC balloon with an excellent angiographic results and reduction of stenosis from 100% to 0%. 3. Successful stenting of the mid left circumflex coronary artery using 3.5 x 28 mm Xience drug-eluting stent with an excellent angiographic results and reduction of stenosis from 80% to 0%. 4. Selective right common femoral artery angiogram. INDICATION: This is a 45-year-old female patient who was admitted to the hospital with chest discomfort and ruled in for acute coronary event. She underwent a heart catheterization by Dr. Gómez and the heart catheterization revealed occluded LAD in the proximal to midportion with severe disease involving the mid left circumflex coronary artery. The patient was found to be also hypotensive and in cardiogenic shock and because of that an Impella was advised to support the procedure. APPROACH: Right common femoral artery. COMPLICATION: None. LEVEL OF SEDATION: Moderate with sedation length of 68 minutes. PROCEDURE DESCRIPTION: Please refer to the diagnostic heart catheterization was performed by Dr. Gómez earlier today. After reviewing the angiogram and because the patient was in shock with systolic pressure below 90 mmHg and as a matter of fact, her systolic pressure was 83 mmHg with narrow pulse pressure, we decided to pursue the placing of Impella in the left ventricle after reviewing her coronary anatomy. At that point, I did start anticoagulation using heparin and the patient was given a weight based heparin with continuous ACT monitoring throughout the procedure. Subsequently, I did pre-close the groin using 2 Perclose at 10 and 2 o'clock over a 035 wire and then after that I placed a 6-Palauan sheath in the right groin. A stiff wire was placed from the right groin and advanced all the way to the descending thoracic aorta. After that I upgraded my sheath from 6-Palauan into 14-Palauan sheath using an 8-Palauan dilator, 10 Palauan dilator, and 12-Palauan dilator as well. After that and using a pigtail catheter, I did cross the aortic valve. I did place a 018 wire inside the pigtail catheter and pigtail catheter was withdrawn out. After that, and after prepping the Impella, the Impella was advanced over the [address] to the left ventricle where after that the Impella was turned on. Using an 18-gauge Quik needle, I was able to access the sheath the 14-Palauan sheath and using an 035 wire I was able to place a 6-Palauan sheath there. Subsequently, I did engage the left main using JL4 guide. I did cross the lesion in the LAD using 014 wire. After that, I did balloon angioplasty using 2.5 x 12 mm balloon. Subsequently, I placed a 3.0 x 38 mm Xience drug-eluting stent where the stent was positioned under fluoroscopy guidance and deployed under its nominal pressure. The stent was post-dilated using 3.25 mm NC balloon with the following angiogram showing excellent angiographic results. After that, I did direct my wire into the left circumflex where I did balloon angioplasty of the left circumflex using 3.0 x 12 mm balloon before I deployed 3.5 x 28 mm Xience drug-eluting stent and again the stent was positioned under fluoroscopy guidance and deployed under its nominal pressure. The following angiogram showed excellent angiographic results and the procedure was completed without any complication. After that, the Impella was pulled from the left ventricle and then pulled out of the 14-Palauan sheath in the right groin. After that I did close the groin using the 2 Perclose which I initially placed and we achieved an excellent hemostasis. POSTPROCEDURE MANAGEMENT: 1. Dual anti-platelet therapy. 2. Aggressive cholesterol control. 3. Risk factor modifications. 4. Follow up with the patient. MMODL / IJN: [id number] /
== END 2020-09-28 14:48 | disposition home or self-care (01) | DRG 215 ==
LOC: EC 16:54 → 3SCARD 20:31 → 2SICU 09-27 13:18
PROVIDERS: ADMIT Internal Medicine; ATTEND Internal Medicine
PROC: B2111ZZ Fluoroscopy of Multiple Coronary Arteries using Low Osmolar Contrast (ICD-10-PCS; 2020-09-27)
PROC: 4A023N7 Measurement of Cardiac Sampling and Pressure, Left Heart, Percutaneous Approach (ICD-10-PCS; 2020-09-27 08:25)
PROC: 02HA3RJ Insertion of Short-term External Heart Assist System into Heart, Intraoperative, Percutaneous Approach (ICD-10-PCS; principal; 2020-09-28)
PROC: 027135Z Dilation of Coronary Artery, Two Arteries with Two Drug-eluting Intraluminal Devices, Percutaneous Approach (ICD-10-PCS; 2020-09-28)
PROC: 5A02210 Assistance with Cardiac Output using Balloon Pump, Continuous (ICD-10-PCS; 2020-09-28)
DX: I21.09 ST elevation (STEMI) myocardial infarction involving other coronary artery of anterior wall (principal); R57.0 Cardiogenic shock; I50.23 Acute on chronic systolic (congestive) heart failure; F17.210 Nicotine dependence, cigarettes, uncomplicated; Z82.49 Family history of ischemic heart disease and other diseases of the circulatory system; Z85.828 Personal history of other malignant neoplasm of skin; I25.5 Ischemic cardiomyopathy; E78.5 Hyperlipidemia, unspecified; D72.829 Elevated white blood cell count, unspecified; K21.9 Gastro-esophageal reflux disease without esophagitis; F32.9 Major depressive disorder, single episode, unspecified; F41.9 Anxiety disorder, unspecified; I25.10 Atherosclerotic heart disease of native coronary artery without angina pectoris; Z79.899 Other long term (current) drug therapy
CPT/HCPCS: 36415; 80053; 80061; 81003; 81025; 82150; 83690; 83735; 84484; 85025; 85610; 85730; 93005; 93306; 93458; 96374; 99285